=== PATIENT | female | born 1985 | race Caucasian/White ===

== ENCOUNTER 2016-12-30 13:40 | Emergency (ER) | payer SELFPAY ==
[2016-12-30] MEDS ORDERED: Lorazepam 2 MG/ML VIAL ONE (13:57)
== END 2016-12-30 15:50 | disposition home or self-care (01) ==
LOC: NAV ERS 13:40
DX: F41.9 Anxiety disorder, unspecified (principal)
CPT/HCPCS: 96372; J2060

== ENCOUNTER 2017-01-28 10:24 | Emergency (ER) | payer SELFPAY | END 2017-01-28 10:45 | disposition home or self-care (01) | LOC: NAV ERS 10:24 | DX: F41.9 Anxiety disorder, unspecified (principal) | CPT/HCPCS: 99283 ==